=== PATIENT | male | born 1985 | race Caucasian/White ===

== ENCOUNTER 2016-08-17 02:55 | Emergency (ER) | payer MEDICAID ==
[2016-08-17 03:12] VITALS: BP 136/80; PULSE 71; RESP 20; TEMP 98.4; O2SAT 96
--- NOTE | 2016-08-17 03:56 | EDPHY ---
H & P Stated Complaint: left swollen cheek- worsening Time Seen by Provider: 08/17/16 03:35 HPI/ROS: Chief Complaint: Left cheek pain and swelling HPI: 31-year-old male has been having 2 days of worsening swelling in his left cheek with pain. Patient was seen by his doctor yesterday and started on antibiotics. He has a history of abscesses in that spot in the past. No fevers or chills. Does not hurt to chew or swallow. Is been swelling more overnight with increasing pressure and pain is presenting for evaluation. ROS: 10 point Review of Systems is negative except as noted in the HPI. PMH: Cheek abscess Social History: Positive smoking, positive alcohol, [ no recreational drug use] Family History: [non-contributory] Physical Exam: General: Awake, alert, no acute distress Face: There is a 3 cm area of swelling and fluctuance in his left cheek. No intraoral lesions, no surrounding cellulitis. Mouth: Moist mucosa, normal oropharynx. Is no submandibular tenderness or swelling. - Personal History Current Tetanus Diphtheria and Acellular Pertussis (TDAP): No - Medical/Surgical History Hx Asthma: No Hx Chronic Respiratory Disease: No Hx Diabetes: No Hx Cardiac Disease: No Hx Renal Disease: No Hx Cirrhosis: No Hx Alcoholism: No Hx HIV/AIDS: No Hx Splenectomy or Spleen Trauma: No Other PMH: FX JAW AND NOSE/ULCERS - Social History Smoking Status: Current every day smoker Constitutional: Initial Vital Signs Temperature (C) 36.9 C 08/17/16 03:10 Heart Rate 71 08/17/16 03:10 Respiratory Rate 20 08/17/16 03:10 Blood Pressure 136/80 H 08/17/16 03:10 O2 Sat (%) 96 08/17/16 03:10 O2 Delivery Mode Room Air Allergies/Adverse Reactions: No Known Allergies Allergy (Verified 08/17/16 03:09) Home Medications: Medication Instructions Recorded Tizanidine HCl 08/17/16 Medical Decision Making Procedures: Procedure: Abscess drainage. The patient's abscess was located on the left cheek. I obtained verbal consent from the patient to drain the abscess who was informed about the possibility of bleeding and pain. The abscess was incised with 11 blade and a large amount of purulent drainage was expressed. I irrigated the wound and placed some packing. The patient tolerated the procedure well. The procedure was performed by myself. Departure - Departure Disposition: Home, Routine, Self-Care Clinical Impression: Abscess, cheek Condition: Good Instructions: Abscess (ED) Additional Instructions: Take your full course of antibiotics. Leave the dressing in place until seen by your doctor Your doctor will removed the packing. Follow up with your doctor tomorrow as scheduled. Referrals: Swapna Parikh MD [Primary Care Provider] - As per Instructions
== END 2016-08-17 04:05 | disposition home or self-care (01) ==
DX: L02.01 Cutaneous abscess of face (principal); F17.200 Nicotine dependence, unspecified, uncomplicated

== ENCOUNTER 2017-01-22 12:27 | Emergency (ER) | payer MEDICAID ==
[2017-01-22 12:33] VITALS: RESP 18
--- NOTE | 2017-01-22 14:48 | EDPHY ---
General Narrative: CHIEF COMPLAINT: "lungs are on fire," cough HISTORY OF PRESENT ILLNESS: Patient complains of "my lungs are on fire" that started this morning. It is a constant pain. He feels short of breath and difficulty obtaining his breath. Some cough. He has felt subjectively fever. It is worse with inspiration and coughing. No exertional chest pain. No nausea or vomiting. No diaphoresis. Patient is on the streets and does not have any medications that he has tried. He was at [facility] to discuss his mental health diagnoses. They expressed their concern for him and symptoms our facility for further care. No other associated complaints or modifying factors. REVIEW OF SYSTEMS: Ten systems reviewed and are negative unless otherwise noted in the HPI PCP: [facility], Dr. Parikh SPECIALISTS: [facility] PAST MEDICAL HISTORY: Bipolar disorder, anxiety, osteoarthritis, depression, PTSD PAST SURGICAL HISTORY: ACL reconstruction last year SOCIAL HISTORY: Smoker. Occasional alcohol. No street drugs. Occasional marijuana. Currently homeless FAMILY HISTORY: Noncontributory EXAMINATION General Appearance: Alert, no distress, strong odor of cigarette smoke Head: normocephalic, atraumatic Eyes: Pupils equal and round, no conjunctival pallor or injection ENT, Mouth: Mucous membranes moist. Airway patent Neck: Normal inspection, supple, non-tender Respiratory: Lungs are clear to auscultation. No wheezing. No rhonchi. No crackles. No diminishment. No retractions. No consolidation. Cardiovascular: Regular rate and rhythm. No murmur Gastrointestinal: Abdomen is soft and nontender Back: non-tender, no bony abnormalities Neurological: A&O, nonfocal, normal gait Skin: Warm and dry, no rash. No petechiae or purpura Extremities: Nontender, no pedal edema Psychiatric: Mood and affect normal DIFFERENTIAL DIAGNOSES: Including but not limited to bronchitis, pneumonia, ACS, PE, pleurisy, pericarditis MDM: 2:47 p.m. Burning sensation with respirations as well as cough. Patient's examination is more consistent with bronchitis. Low suspicion for cardiac involvement. I have ordered laboratory studies, EKG and chest x-ray. Troponin will be sensitive as the pain started greater than 6 hours ago. He is PERC negative, thus I have not ordered a D-dimer. 3:30 p.m. Laboratory studies pending. Chest x-ray is unremarkable. Patient remains in no acute distress vital signs stable. 4:25 p.m. Laboratories are negative including a negative troponin. This is a sensitive troponin as he has had pain greater than 6 hours. I feel this is all related to his cough and likely bronchitis. Given that he is a smoker, I will provide a prescription for Zithromax and antitussive. Will also provide an inhaler. Discharged home with [facility] Patient is comfortable this plan. He has ED precautions. He is discharged in stable condition. - History Smoking Status: Current every day smoker - Objective Vital Signs: Initial Vital Signs Heart Rate 87 01/22/17 12:30 Respiratory Rate 18 01/22/17 12:30 Blood Pressure 148/94 H 01/22/17 12:30 O2 Sat (%) 98 01/22/17 12:30 O2 Delivery Mode Room Air Allergies/Adverse Reactions: No Known Allergies Allergy (Verified 08/17/16 03:09) Home Medications: Medication Instructions Recorded Azithromycin [Zithromax] 250 mg PO DAILY #4 tab 01/22/17 Laboratory Results: Laboratory Results 01/22/17 15:00 01/22/17 15:00 Medications Given: Discontinued Medications Albuterol (Proventil Inhaler) 2 puffs IH EDNOW ONE Stop: 01/22/17 16:30 Last Admin: 01/22/17 16:38 Dose: 2 puffs Albuterol Sulfate (Proventil Inh Prepack) 1 mdi TAKEHOME EDNOW ONE Stop: 01/22/17 16:40 Last Admin: 01/22/17 16:41 Dose: 1 mdi Azithromycin (Zithromax) 500 mg PO EDNOW ONE PRN Reason: Protocol Stop: 01/22/17 16:30 Last Admin: 01/22/17 16:38 Dose: 500 mg Departure - Departure Disposition: Home, Routine, Self-Care Clinical Impression: Cough Acute bronchitis Qualifiers: Bronchitis organism: unspecified organism Qualified Code(s): J20.9 - Acute bronchitis, unspecified Condition: Good Instructions: Albuterol (By breathing), Azithromycin (By mouth), Antitussives ( By mouth), Acute Bronchitis (ED) Additional Instructions: 1. Medications as prescribed 2. Refrain from smoking 3. ED precautions as discussed 4. Follow up with primary care physician Referrals: Swapna Parikh MD [Primary Care Provider] - As per Instructions Prescriptions: Azithromycin [Zithromax] 250 mg PO DAILY #4 tab
--- NOTE | 2017-01-22 15:10 | CPEKG ---
Heart Rate: 55 RR Interval: 1091 P-R Interval: 144 QRSD Interval: 80 QT Interval: 424 QTC Interval: 406 P [place]: 68 QRS [place]: 68 T Wave [place]: 74 EKG Severity - NORMAL ECG - EKG Impression: SINUS RHYTHM Electronically Signed By: Leonarda Sylvester 22-Jan-2017 19:41:14
[2017-01-22 15:13] LABS: % IMMATURE GRANULYOCYTES 0.5 % (0.0-1.1); ABSOLUTE IMMATURE GRANULOCYTES 0.05 10^3/uL (0.00-0.10); ADD DIFF? NO; ADD MORPH? NO; ADD SCAN? NO; ATYPICAL LYMPHOCYTE FLAG 10 (0-99); FRAGMENT RBC FLAG 0 (0-99); HEMATOCRIT 44.3 % (40.0-51.0); LEFT SHIFT FLG 0 (0-99); LIPEMIA HEMOLYSIS FLAG 90 (0-99); MEAN CELL HEMOGLOBIN 34.1 pg (27.9-34.1); MEAN CELL HEMOGLOBIN CONCENTR. 36.1 g/dL (32.4-36.7); MEAN CELL VOLUME 94.5 fL (81.5-99.8); MEAN PLATELET VOLUME 10.6 fL (8.7-11.7); PLATELET CLUMPS FLAG 0 (0-99); PLATELET COUNT 276 10^3/uL (150-400); RED BLOOD CELL COUNT 4.69 10^6/uL (4.40-6.38); RED CELL DISTRIBUTION WIDTH 12.6 % (11.5-15.2)
[2017-01-22 15:27] LABS: ANION GAP 14 mEq/L (8-16); CALCIUM 10.1 mg/dL (8.5-10.4); CARBON DIOXIDE 20 mEq/l (22-31); CHLORIDE 105 mEq/L (97-110); CREATININE 0.8 mg/dL (0.7-1.3); GLOMERULAR FILTRATION RATE > 60; GLUCOSE 77 mg/dL (70-100); POTASSIUM 3.8 mEq/L (3.5-5.2); SODIUM 139 mEq/L (134-144)
[2017-01-22 15:37] LABS: TROPONIN I < 0.012 ng/mL (0.000-0.034)
[2017-01-22] MEDS ORDERED: AZITHROMYCIN 250 MG TAB PO ONE (16:29)
[2017-01-22] MEDS ORDERED: ALBUTEROL 60 PUFFS/8 GM MDI IH ONE (16:29)
[2017-01-22] MEDS ORDERED: ALBUTEROL INH PREPACK MDI TAKEHOME ONE ×2 (16:33→16:39)
[2017-01-22 16:43] VITALS: BP 125/80; PULSE 74; TEMP 98.6; O2SAT 95
== END 2017-01-22 16:50 | disposition home or self-care (01) ==
DX: J20.9 Acute bronchitis, unspecified (principal); F17.200 Nicotine dependence, unspecified, uncomplicated